=== PATIENT | female | born 1935 | race Caucasian/White ===

== ENCOUNTER → 2016-08-01 | Outpatient (CLI) | payer MEDICARE, OTHER ==
[~2016-08-01] MED LIST: AMLODIPINE5 MG PO; ASPIRIN E.C. 8181 MG PO; CALCIUM1 CAP PO; CELEXA10 MG PO; DUO-KAPS1 CAP PO; FISH OIL CONC1000 MG PO; HCTZ PO; METOPROLOL SUC100 M1 PO; OMEPRAZOLE20 M2 PO; VITAMIN C500 MG PO; VITAMIN D1000 IU PO
== END ==
LOC: MAMMO 09:43
DX: Z12.31 Encounter for screening mammogram for malignant neoplasm of breast (principal)
CPT/HCPCS: G0202

== ENCOUNTER → 2016-08-01 | Outpatient (CLI) | payer MEDICARE, OTHER | LOC: RAD 09:41 | DX: Z13.820 Encounter for screening for osteoporosis (principal) ==

== ENCOUNTER → 2017-01-01 | Outpatient (CLI) | payer MEDICARE, OTHER ==
[2016-04-05 11:41] VITALS: BP 152/85
== END ==
LOC: LAB 10:25
DX: I10 Essential (primary) hypertension (principal); Z00.00 Encounter for general adult medical examination without abnormal findings; R10.9 Unspecified abdominal pain; N76.0 Acute vaginitis; B96.20 Unspecified Escherichia coli [E. coli] as the cause of diseases classified elsewhere

== ENCOUNTER → 2017-03-12 | Outpatient (CLI) | payer MEDICARE, OTHER ==
[2016-04-05 11:41] VITALS: BP 152/85
== END ==
LOC: LAB 16:37
DX: R61 Generalized hyperhidrosis (principal); N76.0 Acute vaginitis

== ENCOUNTER → 2017-03-15 | Outpatient (CLI) | payer MEDICARE, OTHER ==
[2016-04-05 11:41] VITALS: BP 152/85
== END ==
LOC: LAB 09:54
DX: R61 Generalized hyperhidrosis (principal)

== ENCOUNTER → 2017-10-15 | Outpatient (CLI) | payer MEDICARE, OTHER ==
[2016-04-05 11:41] VITALS: BP 152/85
[2017-10-15 22:21] LABS: EOS # 0.1 (0.04-0.40); HEMOGLOBIN 12.5 g/dL (12.5-16.0); LYMPH# 2.1 (1.50-4.00); MEAN CELL VOLUME 97 fl (78-100); MEAN CORPUSCULAR HEMOGLOBIN 33 pg (27-31); MEAN CORPUSCULAR HGB CONC 34 g/dL (33-37); MEAN PLATELET VOLUME 10.3 fl (7.4-10.4); MONO # 0.5 (0.20-0.80); NEU # 3.1 (1.40-6.50); PLATELET COUNT 223 K/mm3 (130-400); RED BLOOD COUNT 3.81 M/mm3 (4.10-5.30); WHITE BLOOD COUNT 5.9 K/mm3 (4.8-10.8)
[2017-10-15 22:24] LABS: ALBUMIN 4.3 g/dL (3.5-5.0); BUN/CREATININE RATIO 19.4 (6.0-26.0); CALCIUM 9.7 mg/dL (8.4-10.2); POTASSIUM 3.8 mmol/L (3.6-5.0); TOTAL BILIRUBIN 0.2 mg/dL (0.2-1.3); TOTAL PROTEIN 7.6 g/dL (6.3-8.2)
[2017-10-15 23:26] LABS: ERYTHROCYTE SEDIMENTATION RATE 17 mm/hr (0-30)
[2017-10-16 09:54] LABS: C-REACTIVE PROTEIN XXX
== END ==
LOC: LAB 16:06
PROVIDERS: Nurse Practitioner Family
DX: I10 Essential (primary) hypertension (principal); R68.89 Other general symptoms and signs; R53.81 Other malaise; M25.50 Pain in unspecified joint; F51.01 Primary insomnia; F43.21 Adjustment disorder with depressed mood; Z88.0 Allergy status to penicillin; Z88.8 Allergy status to other drugs, medicaments and biological substances

== ENCOUNTER → 2017-10-24 | Outpatient (CLI) | payer MEDICARE, OTHER ==
[2016-04-05 11:41] VITALS: BP 152/85
== END ==
LOC: MAMMO 12:55
DX: Z12.31 Encounter for screening mammogram for malignant neoplasm of breast (principal)

== ENCOUNTER → 2018-01-25 | Outpatient (CLI) | payer MEDICARE, OTHER ==
[2016-04-05 11:41] VITALS: BP 152/85
[2018-01-29 17:21] LABS: ALBUMIN 4.5 g/dL (3.5-5.0); BUN/CREATININE RATIO 18.6 (6.0-26.0); CALCIUM 9.8 mg/dL (8.4-10.2); TOTAL BILIRUBIN 0.4 mg/dL (0.2-1.3); TOTAL PROTEIN 7.4 g/dL (6.3-8.2)
== END ==
LOC: LAB 09:08
PROVIDERS: Nurse Practitioner Family
DX: Z00.00 Encounter for general adult medical examination without abnormal findings (principal)

== ENCOUNTER → 2018-03-25 | Outpatient (CLI) | payer MEDICARE, OTHER ==
[2016-04-05 11:41] VITALS: BP 152/85
== END ==
LOC: RAD 12:32
DX: M48.07 Spinal stenosis, lumbosacral region (principal); M51.36 Other intervertebral disc degeneration, lumbar region; M51.27 Other intervertebral disc displacement, lumbosacral region; M47.896 Other spondylosis, lumbar region; M43.16 Spondylolisthesis, lumbar region; M51.24 Other intervertebral disc displacement, thoracic region; M48.04 Spinal stenosis, thoracic region; M47.894 Other spondylosis, thoracic region; M25.552 Pain in left hip; M25.551 Pain in right hip

== ENCOUNTER 2018-05-23 13:00 | Outpatient (RCR) | payer MEDICARE, OTHER ==
[2016-04-05 11:41] VITALS: BP 152/85
== END 2018-05-23 13:30 | disposition home or self-care (01) ==
LOC: PT 13:00
DX: M54.41 Lumbago with sciatica, right side (principal)
CPT/HCPCS: G0283-GP; G8978-GP; G8979-GP

== ENCOUNTER → 2018-12-24 | Outpatient (CLI) | payer MEDICARE, OTHER ==
[2016-04-05 11:41] VITALS: BP 152/85
== END ==
LOC: RAD 10:04
DX: M16.12 Unilateral primary osteoarthritis, left hip (principal); R45.1 Restlessness and agitation; I10 Essential (primary) hypertension; F32.9 Major depressive disorder, single episode, unspecified; F51.01 Primary insomnia; G25.0 Essential tremor

== ENCOUNTER 2019-05-14 08:35 | Outpatient (RCR) | payer MEDICARE, OTHER ==
[2016-04-05 11:41] VITALS: BP 152/85
== END 2019-05-21 14:31 | disposition still patient (30) ==
LOC: OPPGERO 08:35
DX: F33.1 Major depressive disorder, recurrent, moderate (principal); F41.1 Generalized anxiety disorder; G20 Parkinson's disease; I10 Essential (primary) hypertension; E78.5 Hyperlipidemia, unspecified; Z90.10 Acquired absence of unspecified breast and nipple; Z90.710 Acquired absence of both cervix and uterus; Z90.89 Acquired absence of other organs; Z79.82 Long term (current) use of aspirin; Z79.899 Other long term (current) drug therapy

== ENCOUNTER 2019-05-26 08:43 | Outpatient (RCR) | payer MEDICARE, OTHER ==
[2016-04-05 11:41] VITALS: BP 152/85
== END 2019-06-24 12:49 | disposition home or self-care (01) ==
LOC: OPPGERO 08:43
DX: F33.1 Major depressive disorder, recurrent, moderate (principal); F41.1 Generalized anxiety disorder; G20 Parkinson's disease; I10 Essential (primary) hypertension; E78.5 Hyperlipidemia, unspecified; Z79.899 Other long term (current) drug therapy

== ENCOUNTER 2019-06-26 11:17 | Outpatient (RCR) | payer MEDICARE, OTHER ==
[2016-04-05 11:41] VITALS: BP 152/85
== END 2019-07-25 14:15 ==
LOC: OPPGERO 11:17
DX: F33.1 Major depressive disorder, recurrent, moderate (principal); F41.1 Generalized anxiety disorder; G20 Parkinson's disease; I10 Essential (primary) hypertension; E78.5 Hyperlipidemia, unspecified; Z79.82 Long term (current) use of aspirin; Z79.899 Other long term (current) drug therapy; Z90.710 Acquired absence of both cervix and uterus; Z90.10 Acquired absence of unspecified breast and nipple; Z90.89 Acquired absence of other organs

== ENCOUNTER 2019-07-28 09:23 | Outpatient (RCR) | payer MEDICARE, OTHER ==
[2016-04-05 11:41] VITALS: BP 152/85
== END 2019-08-22 14:30 ==
LOC: OPPGERO 09:23
DX: F33.1 Major depressive disorder, recurrent, moderate (principal); F41.1 Generalized anxiety disorder; G20 Parkinson's disease; I10 Essential (primary) hypertension; E78.5 Hyperlipidemia, unspecified; H04.209 Unspecified epiphora, unspecified side; Z63.4 Disappearance and death of family member; Z79.82 Long term (current) use of aspirin; Z79.899 Other long term (current) drug therapy; Z87.59 Personal history of other complications of pregnancy, childbirth and the puerperium; Z90.10 Acquired absence of unspecified breast and nipple; Z90.710 Acquired absence of both cervix and uterus; Z90.89 Acquired absence of other organs

== ENCOUNTER 2019-08-25 09:46 | Outpatient (RCR) | payer MEDICARE, OTHER ==
[2016-04-05 11:41] VITALS: BP 152/85
== END 2019-09-23 13:27 ==
LOC: OPPGERO 09:46
DX: F33.1 Major depressive disorder, recurrent, moderate (principal); F41.1 Generalized anxiety disorder; G20 Parkinson's disease; I10 Essential (primary) hypertension; E78.5 Hyperlipidemia, unspecified; Z63.32 Other absence of family member; Z79.82 Long term (current) use of aspirin; Z79.899 Other long term (current) drug therapy; Z90.10 Acquired absence of unspecified breast and nipple; Z90.710 Acquired absence of both cervix and uterus; Z90.89 Acquired absence of other organs

== ENCOUNTER 2019-09-01 13:00 | Outpatient (RCR) | payer MEDICARE, OTHER ==
[2016-04-05 11:41] VITALS: BP 152/85
== END 2019-09-01 13:30 | disposition still patient (30) ==
LOC: OT 13:00
DX: G25.0 Essential tremor (principal); R27.8 Other lack of coordination

== ENCOUNTER 2019-09-24 09:37 | Outpatient (RCR) | payer MEDICARE, OTHER ==
[2016-04-05 11:41] VITALS: BP 152/85
== END 2019-10-23 16:00 ==
LOC: OPPGERO 09:37
DX: F33.1 Major depressive disorder, recurrent, moderate (principal); F41.1 Generalized anxiety disorder; G20 Parkinson's disease; I10 Essential (primary) hypertension; E78.5 Hyperlipidemia, unspecified; G56.00 Carpal tunnel syndrome, unspecified upper limb; Z63.32 Other absence of family member; Z79.82 Long term (current) use of aspirin; Z79.899 Other long term (current) drug therapy; Z90.710 Acquired absence of both cervix and uterus; Z90.10 Acquired absence of unspecified breast and nipple; Z90.89 Acquired absence of other organs

== ENCOUNTER 2019-10-24 08:31 | Outpatient (RCR) | payer MEDICARE, OTHER ==
[2016-04-05 11:41] VITALS: BP 152/85
== END 2019-11-21 15:18 | disposition still patient (30) ==
LOC: OPPGERO 08:31
DX: F33.1 Major depressive disorder, recurrent, moderate (principal); F41.1 Generalized anxiety disorder; G20 Parkinson's disease; I10 Essential (primary) hypertension; E78.5 Hyperlipidemia, unspecified; G56.00 Carpal tunnel syndrome, unspecified upper limb; Z79.82 Long term (current) use of aspirin; Z63.32 Other absence of family member

== ENCOUNTER 2019-11-24 09:35 | Outpatient (RCR) | payer MEDICARE, OTHER ==
[2016-04-05 11:41] VITALS: BP 152/85
== END 2019-12-23 16:10 | disposition still patient (30) ==
LOC: OPPGERO 09:35
DX: F33.41 Major depressive disorder, recurrent, in partial remission (principal); F41.1 Generalized anxiety disorder; G20 Parkinson's disease; E55.9 Vitamin D deficiency, unspecified; G56.00 Carpal tunnel syndrome, unspecified upper limb; I10 Essential (primary) hypertension; Z63.4 Disappearance and death of family member; Z79.82 Long term (current) use of aspirin; Z79.899 Other long term (current) drug therapy; Z90.10 Acquired absence of unspecified breast and nipple; Z90.711 Acquired absence of uterus with remaining cervical stump; Z90.09 Acquired absence of other part of head and neck; Z90.89 Acquired absence of other organs

== ENCOUNTER → 2020-03-11 | Outpatient (CLI) | payer MEDICARE, OTHER ==
[2016-04-05 11:41] VITALS: BP 152/85
== END ==
LOC: MAMMO 09:22
DX: Z12.31 Encounter for screening mammogram for malignant neoplasm of breast (principal)

== ENCOUNTER → 2020-03-11 | Outpatient (CLI) | payer MEDICARE, OTHER ==
[2016-04-05 11:41] VITALS: BP 152/85
[2020-03-11 09:46] LABS: EOS # 0.1 (0.04-0.40); EOS % 1.7 % (1.0-5.0); HEMOGLOBIN 12.7 g/dL (12.5-16.0); LYMPH# 1.5 (1.50-4.00); MEAN CELL VOLUME 97 fl (78-100); MEAN CORPUSCULAR HEMOGLOBIN 33 pg (27-31); MEAN CORPUSCULAR HGB CONC 34 g/dL (33-37); MEAN PLATELET VOLUME 9.1 fl (7.4-10.4); MONO # 0.6 (0.20-0.80); NEU # 4.1 (1.40-6.50); PLATELET COUNT 237 K/mm3 (130-400); RED BLOOD COUNT 3.83 M/mm3 (4.10-5.30); RED CELL DISTRIBUTION WIDTH 12.6 % (11.5-14.5); WHITE BLOOD COUNT 6.4 K/mm3 (4.8-10.8)
[2020-03-11 09:58] LABS: ALBUMIN 4.7 g/dL (3.4-4.8); POTASSIUM 3.7 mmol/L (3.5-5.1)
[2020-03-11 09:59] LABS: CALCIUM 9.5 mg/dL (8.3-10.5)
[2020-03-11 10:01] LABS: TOTAL PROTEIN 7.6 g/dL (6.2-8.1)
[2020-03-11 10:03] LABS: TOTAL BILIRUBIN 0.3 mg/dL (0.2-1.2)
== END ==
LOC: LAB 09:25
PROVIDERS: Physician Assistant
DX: I10 Essential (primary) hypertension (principal); E78.5 Hyperlipidemia, unspecified; G25.0 Essential tremor; F32.9 Major depressive disorder, single episode, unspecified; G20 Parkinson's disease; M54.40 Lumbago with sciatica, unspecified side

== ENCOUNTER → 2020-03-23 | Outpatient (CLI) | payer MEDICARE, OTHER ==
[2016-04-05 11:41] VITALS: BP 152/85
== END ==
LOC: RAD 07:43
DX: M48.061 Spinal stenosis, lumbar region without neurogenic claudication (principal); M41.86 Other forms of scoliosis, lumbar region; M48.8X6 Other specified spondylopathies, lumbar region

== ENCOUNTER → 2021-03-24 | Outpatient (CLI) | payer MEDICARE, OTHER ==
[2021-03-24 07:58] LABS: BASO # 0.03 (0.02-0.10); EOS # 0.15 (0.04-0.40); EOS % 2.8 % (1.0-5.0); HEMATOCRIT 38.3 % (37.0-47.0); HEMOGLOBIN 13.1 g/dL (12.5-16.0); LYMPH# 1.97 (1.50-4.00); MEAN CELL VOLUME 95 fl (78-100); MEAN CORPUSCULAR HEMOGLOBIN 32 pg (27-31); MEAN CORPUSCULAR HGB CONC 34 g/dL (33-37); MEAN PLATELET VOLUME 9.1 fl (7.4-10.4); MONO # 0.53 (0.20-0.80); PLATELET COUNT 207 K/mm3 (130-400); RED BLOOD COUNT 4.04 M/mm3 (4.10-5.30); RED CELL DISTRIBUTION WIDTH 12.1 % (11.5-14.5); WHITE BLOOD COUNT 5.4 K/mm3 (4.8-10.8)
[2021-03-24 08:13] LABS: POTASSIUM 3.6 mmol/L (3.5-5.1); SODIUM 142 mmol/L (136-145)
[2021-03-24 08:14] LABS: ALBUMIN 4.4 g/dL (3.4-4.8)
[2021-03-24 08:15] LABS: CALCIUM 9.8 mg/dL (8.3-10.5)
[2021-03-24 08:16] LABS: GLUCOSE 93 mg/dL (65-105); TOTAL PROTEIN 7.7 g/dL (6.2-8.1)
[2021-03-24 08:17] LABS: CARBON DIOXIDE 23 mmol/L (23-31)
[2021-03-24 08:18] LABS: TOTAL BILIRUBIN 0.4 mg/dL (0.2-1.2)
[2021-03-24 08:21] LABS: AST-SGOT 26 U/L (5-34)
[2021-03-24 08:38] LABS: ALT/SGPT < 6 U/L (0-55)
== END ==
LOC: LAB 07:44
PROVIDERS: Physician Assistant
DX: Z13.29 Encounter for screening for other suspected endocrine disorder (principal); I10 Essential (primary) hypertension; E78.5 Hyperlipidemia, unspecified; K90.9 Intestinal malabsorption, unspecified

== ENCOUNTER → 2021-03-29 | Outpatient (CLI) | payer MEDICARE, OTHER | LOC: MAMMO 09:10 | DX: Z12.31 Encounter for screening mammogram for malignant neoplasm of breast (principal) ==

== ENCOUNTER → 2022-10-11 | Outpatient (CLI) | payer MEDICARE, OTHER ==
[~2022-10-11] MED LIST changes: +ALLEGRA ALLERG180 MG PO; +CARBIDOPA/LEVODOPA PO; +CELECOXIB100 M1 PO; +DESYREL 100MG100 MG PO; +MIRALAX17 GM PO; +MULTI-VITAMIN1 EACH PO; +NORVASC 10MG10 MG PO; +OMEGA 3 1,0001 EACH PO; +PRILOSEC 20MG20 MG PO; +STOOL SOFTENER250 M2 PO; +TOPIRAMATE25 MG PO; +VITAMIN D325 MCG PO
== END ==
LOC: RAD 10:36
DX: K59.01 Slow transit constipation (principal)

== ENCOUNTER → 2022-10-11 | Outpatient (CLI) | payer MEDICARE, OTHER ==
[~2022-10-11] VITALS: Ht 149.9 cm; Wt 59.1 kg
--- NOTE | 2022-10-11 12:32 | NUR ---
Patient states that she feels like she is empty and ready to go home.
[2022-10-11 12:46] VITALS: BP 159/74
== END ==
LOC: AMSURD 11:09
DX: Z51.81 Encounter for therapeutic drug level monitoring (principal)

== ENCOUNTER 2023-07-11 13:29 | Inpatient (IN) | payer MEDICARE, OTHER ==
[~2023-07-11] VITALS: Ht 152.4 cm; Wt 47.6 kg
[~2023-07-11 13:29] MED LIST changes: +VOLTAREN ARTHRI20 GM TP
[2023-07-11 14:45] VITALS: BP 187/78
[2023-07-11 18:29] VITALS: BP 185/79
[2023-07-11 21:49] VITALS: BP 145/67
[2023-07-12 01:41] VITALS: BP 172/79
[2023-07-12 06:06] VITALS: BP 178/100
[2023-07-12 07:43] LABS: SODIUM 142 mmol/L (136-145)
[2023-07-12 07:45] LABS: CALCIUM 9.6 mg/dL (8.3-10.5); GLUCOSE 95 mg/dL (65-105)
[2023-07-12 07:46] LABS: CARBON DIOXIDE 25 mmol/L (23-31)
[2023-07-12 08:01] LABS: TROPONIN-I < 0.030 ng/mL (0.00-0.033)
[2023-07-12 08:03] LABS: BASO # 0.03 K/mm3 (0.02-0.10); EOS # 0.06 K/mm3 (0.04-0.40); EOS % 1.2 % (1.0-5.0); HEMOGLOBIN 12.5 g/dL (12.5-16.0); LYMPH# 1.61 K/mm3 (1.50-4.00); MEAN CELL VOLUME 98 fl (78-100); MEAN CORPUSCULAR HEMOGLOBIN 33 pg (27-31); MEAN CORPUSCULAR HGB CONC 34 g/dL (33-37); MEAN PLATELET VOLUME 9.2 fl (7.4-10.4); MONO # 0.48 K/mm3 (0.20-0.80); NEU # 2.89 K/mm3 (1.40-6.50); PLATELET COUNT 194 K/mm3 (130-400); RED BLOOD COUNT 3.76 M/mm3 (4.10-5.30); WHITE BLOOD COUNT 5.1 K/mm3 (4.8-10.8)
[2023-07-12 10:15] VITALS: BP 178/104
[2023-07-12 14:46] VITALS: BP 194/102
[2023-07-12 18:43] VITALS: BP 170/73
[2023-07-12 21:42] VITALS: BP 186/82
[2023-07-13] VITALS (7 sets, daily range): BP systolic 130–178; BP diastolic 72–100
[2023-07-14 02:15] VITALS: BP 158/81
[2023-07-14 05:51] VITALS: BP 152/82
[2023-07-14 09:54] VITALS: BP 148/79
[2023-07-14 13:25] VITALS: BP 153/64
[2023-07-14 17:09] VITALS: BP 132/81
[2023-07-14 21:45] VITALS: BP 154/75
[2023-07-15 01:45] VITALS: BP 118/66
[2023-07-15 05:33] VITALS: BP 120/72
[2023-07-15 09:33] VITALS: BP 157/81
[2023-07-15 14:02] VITALS: BP 127/55
[2023-07-15 17:06] VITALS: BP 129/74
[2023-07-15 22:42] VITALS: BP 128/78
[2023-07-16] VITALS (7 sets, daily range): BP systolic 117–155; BP diastolic 64–83
[2023-07-17 01:54] VITALS: BP 121/67
[2023-07-17 05:36] VITALS: BP 139/76
[2023-07-17 10:02] VITALS: BP 120/75
[2023-07-17 13:41] VITALS: BP 111/69
[2023-07-17 17:29] VITALS: BP 157/84
[2023-07-17 21:18] VITALS: BP 140/74
[2023-07-18 02:19] VITALS: BP 137/70
[2023-07-18 05:23] VITALS: BP 122/66
[2023-07-18 09:37] VITALS: BP 152/83
[2023-07-18 11:30] VITALS: BP 188/92
[2023-07-18 12:32] VITALS: BP 132/98
[2023-07-18] MEDS ORDERED: CLOPIDOGREL PO (12:44)
[2023-07-18] MEDS ORDERED: LABETALOL HCL100 MG PO (12:46)
[2023-07-18] MEDS ORDERED: COZAAR 50MG50 MG/TAB PO (12:47)
[2023-07-18] MEDS ORDERED: HCTZ 25MG25 MG PO (12:47)
[2023-07-18] MEDS ORDERED: ZOFRAN ODT4 MG PO (12:48)
[2023-07-18] MEDS ORDERED: HYDROCORTISON28.4 GM TP (12:49)
[2023-07-18 14:05] VITALS: BP 138/87
== END 2023-07-18 14:30 | DRG 65 ==
LOC: MED/SURG 13:29
PROVIDERS: ADMIT Nurse Practitioner
DX: I63.81 Other cerebral infarction due to occlusion or stenosis of small artery (principal); G81.91 Hemiplegia, unspecified affecting right dominant side; R29.702 NIHSS score 2; I10 Essential (primary) hypertension; G20.A1 Parkinson's disease without dyskinesia, without mention of fluctuations; K21.9 Gastro-esophageal reflux disease without esophagitis; J30.2 Other seasonal allergic rhinitis; R26.9 Unspecified abnormalities of gait and mobility; Z66 Do not resuscitate; R78.89 Finding of other specified substances, not normally found in blood; Z88.0 Allergy status to penicillin; Z88.8 Allergy status to other drugs, medicaments and biological substances
CPT/HCPCS: A9575; J7120; Q9967

== ENCOUNTER → 2024-02-12 | Outpatient (CLI) | payer MEDICARE, OTHER ==
[~2024-02-12] MED LIST changes: +CLOPIDOGREL PO; +COZAAR 50MG50 MG/TAB PO; +HCTZ 25MG25 MG PO; +HYDROCORTISON28.4 GM TP; +LABETALOL HCL100 MG PO; +REMERON15 MG PO; +TYLENOL EXTRA500 M2 PO; +ZOFRAN ODT4 MG PO
[2024-02-12 16:43] LABS: BASO # 0.04 K/mm3 (0.02-0.10); EOS # 0.13 K/mm3 (0.04-0.40); HEMATOCRIT 37.2 % (37.0-47.0); HEMOGLOBIN 12.6 g/dL (12.5-16.0); LYMPH# 1.46 K/mm3 (1.50-4.00); MEAN CELL VOLUME 96 fl (78-100); MEAN CORPUSCULAR HEMOGLOBIN 33 pg (27-31); MEAN CORPUSCULAR HGB CONC 34 g/dL (33-37); MEAN PLATELET VOLUME 8.5 fl (7.4-10.4); MONO # 0.47 K/mm3 (0.20-0.80); NEU # 4.44 K/mm3 (1.40-6.50); PLATELET COUNT 233 K/mm3 (130-400); RED BLOOD COUNT 3.88 M/mm3 (4.10-5.30); RED CELL DISTRIBUTION WIDTH 12.4 % (11.5-14.5); WHITE BLOOD COUNT 6.6 K/mm3 (4.8-10.8)
[2024-02-12 16:52] LABS: ALBUMIN 4.8 g/dL (3.4-4.8)
[2024-02-12 16:53] LABS: CALCIUM 10.5 mg/dL (8.3-10.5)
[2024-02-12 16:54] LABS: TOTAL PROTEIN 8.5 g/dL (6.2-8.1)
[2024-02-12 16:56] LABS: TOTAL BILIRUBIN 0.2 mg/dL (0.2-1.2)
== END ==
LOC: LAB 16:04
PROVIDERS: Physician Assistant
DX: Z13.29 Encounter for screening for other suspected endocrine disorder (principal); Z13.1 Encounter for screening for diabetes mellitus; I10 Essential (primary) hypertension; E78.5 Hyperlipidemia, unspecified; M10.9 Gout, unspecified; M25.511 Pain in right shoulder

== ENCOUNTER → 2024-02-21 | Outpatient (REF) | payer MEDICARE, OTHER ==
[2024-02-21 05:35] LABS: URINE APPEARANCE CLOUDY (CLEAR); URINE BILIRUBIN NEGATIVE (NEGATIVE); URINE BLOOD NEGATIVE (NEGATIVE); URINE COLOR YELLOW (YELLOW); URINE GLUCOSE NEGATIVE (NEGATIVE); URINE KETONE NEGATIVE (NEGATIVE); URINE LEUKOCYTE ESTERASE TRACE (NEGATIVE); URINE NITRATE POSITIVE (NEGATIVE); URINE PROTEIN(semi-quant) NEGATIVE (NEGATIVE)
== END ==
LOC: LAB 04:00
PROVIDERS: Physician Assistant
DX: R53.1 Weakness (principal)

== ENCOUNTER → 2024-02-29 | Outpatient (REF) | payer MEDICARE, OTHER ==
[2024-02-29 14:02] LABS: BASO # 0.02 K/mm3 (0.02-0.10); EOS # 0.09 K/mm3 (0.04-0.40); EOS % 0.9 % (1.0-5.0); HEMATOCRIT 27.5 % (37.0-47.0); HEMOGLOBIN 8.8 g/dL (12.5-16.0); LYMPH# 1.58 K/mm3 (1.50-4.00); MEAN CELL VOLUME 100 fl (78-100); MEAN CORPUSCULAR HEMOGLOBIN 32 pg (27-31); MEAN CORPUSCULAR HGB CONC 32 g/dL (33-37); MEAN PLATELET VOLUME 8.9 fl (7.4-10.4); MONO # 0.55 K/mm3 (0.20-0.80); NEU # 7.65 K/mm3 (1.40-6.50); PLATELET COUNT 265 K/mm3 (130-400); RED BLOOD COUNT 2.75 M/mm3 (4.10-5.30); RED CELL DISTRIBUTION WIDTH 13.2 % (11.5-14.5); WHITE BLOOD COUNT 10.1 K/mm3 (4.8-10.8)
[2024-02-29 14:08] LABS: ALBUMIN 3.6 g/dL (3.4-4.8)
[2024-02-29 14:09] LABS: SODIUM 134 mmol/L (136-145)
[2024-02-29 14:10] LABS: CALCIUM 9.1 mg/dL (8.3-10.5)
[2024-02-29 14:11] LABS: GLUCOSE 130 mg/dL (65-105); TOTAL PROTEIN 6.9 g/dL (6.2-8.1)
[2024-02-29 14:13] LABS: TOTAL BILIRUBIN 0.2 mg/dL (0.2-1.2)
[2024-02-29 14:16] LABS: AST-SGOT 13 U/L (5-34)
[2024-02-29 14:17] LABS: CARBON DIOXIDE 14 mmol/L (23-31)
[2024-02-29 14:18] LABS: ALT/SGPT < 6 U/L (0-55); MAGNESIUM 2.13 mg/dL (1.60-2.60)
== END ==
LOC: LAB 13:52
PROVIDERS: Physician Assistant
DX: R41.82 Altered mental status, unspecified (principal)